=== PATIENT | male | born 1990 | race African-American/Black ===

== ENCOUNTER 2016-03-06 06:52 | Emergency (ER) | payer OTHER ==
--- NOTE | 2016-03-06 08:35 | REP ---
Right ankle series: Four views. History: Pain and swelling. Findings: There is moderate to marked periarticular swelling at the ankle anteriorly and laterally. There is a chip fracture of the medial malleolus nondisplaced. Ankle mortise is intact. Oblique radiographs suggest the possibility of a avulsion chip fracture from the lateral malleolus. Bones, joints and soft tissues are otherwise unremarkable. Impression: Marked soft tissue swelling. Comminuted medial malleolar chip fracture nondisplaced. Possible chip fracture lateral malleolus seen on oblique radiograph. Ankle mortise is intact. Signed by Heath Tidwell MD 03/06/2016 02:35 P
--- NOTE | 2016-03-06 09:18 | EDDOCDS ---
Physician Documentation [facility] Name: Saulo Meek Age: 25 yrs Sex: Male : 1990 Arrival Date: 03/06/2016 Time: 06:52 Bed TR8 Private MD: Disposition: 03/06/16 08:49 Discharged to Home/Self Care. Impression: Nondisplaced fracture of medial malleolus of right tibia - comminuted avulsion fracture, Sprain of unspecified ligament of right ankle - possible avulsion fracture of lateral malleolus. - Condition is Stable. - Discharge Instructions: Elastic Bandage and RICE, Cast or Splint Care, Crutch Use, Dpyc-fi-Fisf. - Prescriptions for Ibuprofen 800 mg Oral Tablet - take 1 tablet by ORAL route every 8 hours As needed take with food; 30 tablet. Ultram 50 mg Oral Tablet - take 1 tablet by ORAL route every 6 hours As needed MDD: 4 tabs; 20 tablet. - Medication Reconciliation, Local Pharmacy Hours form. - Follow up: Johnnie Tillman; When: Call to arrange an appointment; Reason: Recheck today's complaints. - Problem is new. - Symptoms are unchanged. Historical: - Allergies: no known allergies; - Home Meds: 1. none - PMHx: none; - PSHx: none; - Social history: Smoking status: Patient states was never smoker of tobacco. No barriers to communication noted, The patient speaks fluent Welsh. - Family history: Not pertinent. - : The pt / caregiver states he / she is not on anticoagulants. Home medication list is obtained from the patient. - Exposure Risk Screening:: None identified. Vital Signs: 03/06 07:40 BP 138 / 88; Pulse 85; Resp 16; Temp 97.6(T); Pulse Ox 99% on R/A; Weight 101.15 kg / dwg 223 lbs; Height 6 ft. 3 in. (190.50 cm); Pain 8/10; 08:41 BP 136 / 73; Pulse 75; Resp 18; Temp 98.9(TE); Pulse Ox 100% on R/A; Pain 8/10; dem1 07:40 Body Mass Index 27.87 (101.15 kg, 190.50 cm) dwg MDM: 07:47 Ankle, Complete Ordered. EDMS 09:03 Financial registration complete. lg Signatures: Dispatcher [employer] Raz Sparks RN RN Edward Gage RN RN jmk Ganter, LoriLee, Real Reg lg Santino Hobson PA-C PA-C ar2 MTDD
--- NOTE | 2016-03-06 09:18 | EDDOCDS ---
Nurse's Notes [facility] Name: Saulo Meek Age: 25 yrs Sex: Male : 1990 Arrival Date: 03/06/2016 Time: 06:52 Bed TR8 Private MD: Diagnosis: Nondisplaced fracture of medial malleolus of right tibia-comminuted avulsion fracture;Sprain of unspecified ligament of right ankle-possible avulsion fracture of lateral malleolus Presentation: 03/06 07:38 Presenting complaint: Patient states: Pain and swelling to right ankle, rolled it dwg jogging at 6am today. The patients lower extremity has obvious swelling present on examination. The patient has been moved to a treatment area. Adult Sepsis Screening: The patient does not have new or worsening altered mentation. Patient's respiratory rate is less than 22. Systolic blood pressure is greater than 100. Patient has a qSOFA score of 0- Negative Sepsis Screen. Suicide/Homicide risk assessment- the patient denies having any suicidal and/or homicidal ideations and does not present with any other emotional, behavioral or mental health complaints. 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 Transition of care: patient was not received from another setting of care. 07:38 Acuity: SIMÓN Level 4 dwg 07:38 Method Of Arrival: Wheelchair [facility] Triage Assessment: 07:40 General: Appears in no apparent distress. Pain: Pain currently is 8 out of 10 on a pain dwg scale. HIV screening NA for this visit Offered previously. Historical: - Allergies: no known allergies; - Home Meds: 1. none - PMHx: none; - PSHx: none; - Social history: Smoking status: Patient states was never smoker of tobacco. No barriers to communication noted, The patient speaks fluent Malagasy. - Family history: Not pertinent. - : The pt / caregiver states he / she is not on anticoagulants. Home medication list is obtained from the patient. - Exposure Risk Screening:: None identified. Screenin:50 Screening information is obtained from the patient. Fall risk: No risks identified. jmk Assistance ADL's: requires no assistance with activities of daily living. Abuse/DV Screen: The patient / caregiver reports he/she is: not in a situation that causes fear, pain or injury. Nutritional screening: No deficits noted. Advance Directives: Currently, there is no health care proxy. There is no active DNR order. There is no living will. There is no Power of Director Of Rehabilitation And Wellness. home support is adequate. Assessment: 07:48 General: Appears in no apparent distress, laughing and joking with visitor. right ankle jmk with visible swelling ( lateral malleolus greater than medial) pulse intact . 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 skin integrity intact. without other injury. ice, elevation initiated.. Musculoskeletal: Capillary refill < 3 seconds No deformity noted Swelling present in right ankle, right Achilles and anterior aspect of right ankle. 09:14 General: Appears splinting accomplished. tolerated well. familiar with [facility] AT [facility] gait.. [facility] Vital Signs: 07:40 BP 138 / 88; Pulse 85; Resp 16; Temp 97.6(T); Pulse Ox 99% on R/A; Weight 101.15 kg; g Height 6 ft. 3 in. (190.50 cm); Pain 8/10; 08:41 BP 136 / 73; Pulse 75; Resp 18; Temp 98.9(TE); Pulse Ox 100% on R/A; Pain 8/10; dem1 07:40 Body Mass Index 27.87 (101.15 kg, 190.50 cm) [facility] Vitals: 07:40 Log In Time: March 06, 2016 at 06:53. [facility] ED Course: 06:54 Patient visited by Mary Walker Reg. hs2 06:54 Patient moved to Waiting hs2 07:33 Patient moved to Triage 1 dw 07:39 Triage Initiated dwg 07:41 Patient moved to I4 / M4 dwg 07:49 [facility] ar2 07:49 Jarrell Juarez MD is Attending Physician. ar2 07:49 Patient visited by Santino Hobson PA-C. ar2 07:50 The patient / caregiver is instructed regarding the plan of care and ED course. jmk 07:51 Patient visited by Edward Garcia RN. jmk 08:09 Patient moved to Radiology dem1 08:16 Patient moved to I4 / M4 dem1 08:41 Patient visited by Socorro Will. dem1 08:43 Johnnie Tillman is Referral Physician. ar2 09:00 Patient name changed from Saulo\S\\S\Meek\S\ to Saulo\S\Elder\S\Meek. EDMS 09:00 Ankle, Complete Returned. EDMS 09:08 Patient moved to 8 dem1 09:14 No IV's were initiated during this patient's visit. No procedures done that require jmk assistance. Order Results: Radiology Order: Ankle, Complete Test: Ankle, Complete REASON FOR EXAMINATION: Pain and swelling; Right ankle series: Four views.; ; History: Pain and swelling.; ; Findings: There is moderate to marked periarticular swelling at the ankle; anteriorly and laterally. There is a chip fracture of the medial malleolus; nondisplaced. Ankle mortise is intact. Oblique radiographs suggest the; possibility of a avulsion chip fracture from the lateral malleolus. Bones,; joints and soft tissues are otherwise unremarkable.; ; Impression:; ; Marked soft tissue swelling. Comminuted medial malleolar chip fracture; nondisplaced. Possible chip fracture lateral malleolus seen on oblique; radiograph. Ankle mortise is intact.; ; ; ; ; Unreviewed; Outcome: 08:49 Discharge ordered by Provider. ar2 09:14 Discharge Assessment: Patient awake, alert and oriented x 3. No cognitive and/or jmk functional deficits noted. Patient verbalized understanding of disposition instructions. patient administered narcotics - no. The following High Risk Discharge criteria are identified: None. Condition: good. Discharge instructions given to patient, Instructed on discharge instructions, Demonstrated understanding of instructions, medications, Pt was receptive of discharge instructions/ teaching. Prescriptions given X 1. No special radiology studies were completed. Property removed. 09:17 Patient left the ED. serak Signatures: Dispatcher [employer] Raz Sparks, RN Edward Amaro RN RN jmk Robertshaw, Aaron, PA-C PA-C ar2 Socorro Will dem1 Mary Walker, Reg Reg hs2 MTDD
--- NOTE | 2016-03-08 10:18 | EDDOCDS ---
Nurse's Notes [facility] Name: Saulo Meek Age: 25 yrs Sex: Male : 1990 Arrival Date: 03/06/2016 Time: 06:52 Bed TR8 Private MD: Diagnosis: Nondisplaced fracture of medial malleolus of right tibia-comminuted avulsion fracture;Sprain of unspecified ligament of right ankle-possible avulsion fracture of lateral malleolus Presentation: 03/06 07:38 Presenting complaint: Patient states: Pain and swelling to right ankle, rolled it dwg jogging at 6am today. The patients lower extremity has obvious swelling present on examination. The patient has been moved to a treatment area. Adult Sepsis Screening: The patient does not have new or worsening altered mentation. Patient's respiratory rate is less than 22. Systolic blood pressure is greater than 100. Patient has a qSOFA score of 0- Negative Sepsis Screen. Suicide/Homicide risk assessment- the patient denies having any suicidal and/or homicidal ideations and does not present with any other emotional, behavioral or mental health complaints. 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 Transition of care: patient was not received from another setting of care. 07:38 Acuity: SIMÓN Level 4 dwg 07:38 Method Of Arrival: Wheelchair [facility] Triage Assessment: 07:40 General: Appears in no apparent distress. Pain: Pain currently is 8 out of 10 on a pain dwg scale. HIV screening NA for this visit Offered previously. Historical: - Allergies: no known allergies; - Home Meds: 1. none - PMHx: none; - PSHx: none; - Social history: Smoking status: Patient states was never smoker of tobacco. No barriers to communication noted, The patient speaks fluent Emirati. - Family history: Not pertinent. - : The pt / caregiver states he / she is not on anticoagulants. Home medication list is obtained from the patient. - Exposure Risk Screening:: None identified. Screenin:50 Screening information is obtained from the patient. Fall risk: No risks identified. jmk Assistance ADL's: requires no assistance with activities of daily living. Abuse/DV Screen: The patient / caregiver reports he/she is: not in a situation that causes fear, pain or injury. Nutritional screening: No deficits noted. Advance Directives: Currently, there is no health care proxy. There is no active DNR order. There is no living will. There is no Power of Area Operations Manager. home support is adequate. Assessment: 07:48 General: Appears in no apparent distress, laughing and joking with visitor. 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 skin integrity intact. without other injury. ice, elevation initiated.. Musculoskeletal: Capillary refill < 3 seconds No deformity noted Swelling present in right ankle, right Achilles and anterior aspect of right ankle. 09:14 General: Appears splinting accomplished. tolerated well. familiar with [facility] gait.. [facility] Vital Signs: 07:40 BP 138 / 88; Pulse 85; Resp 16; Temp 97.6(T); Pulse Ox 99% on R/A; Weight 101.15 kg; g Height 6 ft. 3 in. (190.50 cm); Pain 8/10; 08:41 BP 136 / 73; Pulse 75; Resp 18; Temp 98.9(TE); Pulse Ox 100% on R/A; Pain 8/10; dem1 07:40 Body Mass Index 27.87 (101.15 kg, 190.50 cm) [facility] Vitals: 07:40 Log In Time: March 06, 2016 at 06:53. [facility] ED Course: 06:54 Patient visited by Mary Walker Reg. hs2 06:54 Patient moved to Waiting hs2 07:33 Patient moved to Triage 1 dw 07:39 Triage Initiated dwg 07:41 Patient moved to I4 / M4 dwg 07:49 Santino Hobson [facility]C [facility] ar2 07:49 Jarrell Juarez MD is Attending Physician. ar2 07:49 Patient visited by Santino Hobson PA-C. ar2 07:50 The patient / caregiver is instructed regarding the plan of care and ED course. jmk 07:51 Patient visited by Edward Garcia RN. jmk 08:09 Patient moved to Radiology dem1 08:16 Patient moved to I4 / M4 dem1 08:41 Patient visited by Socorro Will. dem1 08:43 Johnnie Tillman is Referral Physician. ar2 09:00 Patient name changed from Saulo\S\\S\Meek\S\ to Saulo\S\Elder\S\Meek. EDMS 09:00 Ankle, Complete Returned. EDMS 09:08 Patient moved to 8 [facility] 09:14 No IV's were initiated during this patient's visit. No procedures done that require jmk assistance. 09:33 Patient name changed from Saulo\S\Elder\S\Meek\S\ to Saulo\S\Ashutosh\S\Meek. EDMS 09:35 [facility] [place] Agreement was scanned into [employer] and attached to record. lg 14:18 T-Sheet-- Draft Copy was scanned into [employer] and attached to record. gb 14:18 Radiology Report was scanned into [employer] and attached to record. gb Order Results: Radiology Order: Ankle, Complete Test: Ankle, Complete REASON FOR EXAMINATION: Pain and swelling; Right ankle series: Four views.; ; History: Pain and swelling.; ; Findings: There is moderate to marked periarticular swelling at the ankle; anteriorly and laterally. There is a chip fracture of the medial malleolus; nondisplaced. Ankle mortise is intact. Oblique radiographs suggest the; possibility of a avulsion chip fracture from the lateral malleolus. Bones,; joints and soft tissues are otherwise unremarkable.; ; Impression:; ; Marked soft tissue swelling. Comminuted medial malleolar chip fracture; nondisplaced. Possible chip fracture lateral malleolus seen on oblique; radiograph. Ankle mortise is intact.; ; ; Signed by; Heath Tidwell MD 03/06/2016 02:35 P; Outcome: 08:49 Discharge ordered by Provider. ar2 09:14 Discharge Assessment: Patient awake, alert and oriented x 3. No cognitive and/or jmk functional deficits noted. Patient verbalized understanding of disposition instructions. patient administered narcotics - no. The following High Risk Discharge criteria are identified: None. Condition: good. Discharge instructions given to patient, Instructed on discharge instructions, Demonstrated understanding of instructions, medications, Pt was receptive of discharge instructions/ teaching. Prescriptions given X 1. No special radiology studies were completed. Property removed. 09:17 Patient left the ED. adilene Signatures: Dispatcher [facility] Raz Sparks RN RN dwg Knapp, Jean, RN RN Christina Rust, Reg Reg gb Savanna Aparicio, Reg Reg lg Santino Hobson, TERRENCE PAKurt ar2 Socorro Will1 Mary Walker, Reg Reg hs2 Chart Complete MTDD
--- NOTE | 2016-03-08 10:18 | EDDOCDS ---
Physician Documentation [facility] Name: Saulo Meek Age: 25 yrs Sex: Male : 1990 Arrival Date: 03/06/2016 Time: 06:52 Bed TR8 Private MD: Disposition: 03/06/16 08:49 Discharged to Home/Self Care. Impression: Nondisplaced fracture of medial malleolus of right tibia - comminuted avulsion fracture, Sprain of unspecified ligament of right ankle - possible avulsion fracture of lateral malleolus. - Condition is Stable. - Discharge Instructions: Elastic Bandage and RICE, Cast or Splint Care, Crutch Use, [id number]-[id number]. - Prescriptions for Ibuprofen 800 mg Oral Tablet - take 1 tablet by ORAL route every 8 hours As needed take with food; 30 tablet. Ultram 50 mg Oral Tablet - take 1 tablet by ORAL route every 6 hours As needed MDD: 4 tabs; 20 tablet. - Medication Reconciliation, Local Pharmacy Hours form. - Follow up: Johnnie Tillman; When: Call to arrange an appointment; Reason: Recheck today's complaints. - Problem is new. - Symptoms are unchanged. Historical: - Allergies: no known allergies; - Home Meds: 1. none - PMHx: none; - PSHx: none; - Social history: Smoking status: Patient states was never smoker of tobacco. No barriers to communication noted, The patient speaks fluent Costa Rican. - Family history: Not pertinent. - : The pt / caregiver states he / she is not on anticoagulants. Home medication list is obtained from the patient. - Exposure Risk Screening:: None identified. Vital Signs: 03/06 07:40 BP 138 / 88; Pulse 85; Resp 16; Temp 97.6(T); Pulse Ox 99% on R/A; Weight 101.15 kg / dwg 223 lbs; Height 6 ft. 3 in. (190.50 cm); Pain 8/10; 08:41 BP 136 / 73; Pulse 75; Resp 18; Temp 98.9(TE); Pulse Ox 100% on R/A; Pain 8/10; dem1 07:40 Body Mass Index 27.87 (101.15 kg, 190.50 cm) dwg MDM: 07:47 Ankle, Complete Ordered. EDMS 09:03 Financial registration complete. 09:35 [facility] Payment Agreement was scanned into [employer] and attached to record. lg 14:18 T-Sheet-- Draft Copy was scanned into [employer] and attached to record. gb 14:18 Radiology Report was scanned into [employer] and attached to record. gb Signatures: Dispatcher [employer] Raz Sparks RN RN dwg Knapp, Jean, RN RN jmk Barnhardt, Gloria, Reg Reg gb Savanna Aparicio, Reg Reg lg Santino Hobson, PA-Regla PAKurt ar2 The chart was reviewed and I authenticate all verbal orders and agree with the evaluation and treatment provided.Attachments: 09:35 [facility] Payment Agreement lg 14:18 T-Sheet-- Draft Copy gb Chart Complete MTDD
--- NOTE | 2016-03-08 10:18 | EDDOCDS ---
Physician Documentation [facility] Name: Saulo Meek Age: 25 yrs Sex: Male : 1990 Arrival Date: 03/06/2016 Time: 06:52 Bed TR8 Private MD: Disposition: 03/06/16 08:49 Discharged to Home/Self Care. Impression: Nondisplaced fracture of medial malleolus of right tibia - comminuted avulsion fracture, Sprain of unspecified ligament of right ankle - possible avulsion fracture of lateral malleolus. - Condition is Stable. - Discharge Instructions: Elastic Bandage and RICE, Cast or Splint Care, Crutch Use, [id number]. - Prescriptions for Ibuprofen 800 mg Oral Tablet - take 1 tablet by ORAL route every 8 hours As needed take with food; 30 tablet. Ultram 50 mg Oral Tablet - take 1 tablet by ORAL route every 6 hours As needed MDD: 4 tabs; 20 tablet. - Medication Reconciliation, Local Pharmacy Hours form. - Follow up: Johnnie Tillman; When: Call to arrange an appointment; Reason: Recheck today's complaints. - Problem is new. - Symptoms are unchanged. Historical: - Allergies: no known allergies; - Home Meds: 1. none - PMHx: none; - PSHx: none; - Social history: Smoking status: Patient states was never smoker of tobacco. No barriers to communication noted, The patient speaks fluent Indonesian. - Family history: Not pertinent. - : The pt / caregiver states he / she is not on anticoagulants. Home medication list is obtained from the patient. - Exposure Risk Screening:: None identified. Vital Signs: 03/06 07:40 BP 138 / 88; Pulse 85; Resp 16; Temp 97.6(T); Pulse Ox 99% on R/A; Weight 101.15 kg / dwg 223 lbs; Height 6 ft. 3 in. (190.50 cm); Pain 8/10; 08:41 BP 136 / 73; Pulse 75; Resp 18; Temp 98.9(TE); Pulse Ox 100% on R/A; Pain 8/10; dem1 07:40 Body Mass Index 27.87 (101.15 kg, 190.50 cm) dwg MDM: 07:47 Ankle, Complete Ordered. EDMS 09:03 Financial registration complete. 09:35 [facility] Payment Agreement was scanned into [employer] and attached to record. lg 14:18 T-Sheet-- Draft Copy was scanned into [employer] and attached to record. gb 14:18 Radiology Report was scanned into [employer] and attached to record. gb Signatures: Dispatcher [employer] Raz Sparks RN RN dwg Knapp, Jean, RN RN jmk Barnhardt, Gloria, Reg Reg gb Savanna Aparicio, Reg Reg lg Santino Hobson, PA-Regla PAKurt ar2 The chart was reviewed and I authenticate all verbal orders and agree with the evaluation and treatment provided.Attachments: 09:35 [facility] Payment Agreement lg 14:18 T-Sheet-- Draft Copy gb Chart Complete MTDD
== END 2016-03-06 09:17 | disposition home or self-care (01) ==
LOC: M ED 06:52
DX: S82.54XA Nondisplaced fracture of medial malleolus of right tibia, initial encounter for closed fracture (principal); S93.401A Sprain of unspecified ligament of right ankle, initial encounter; X58.XXXA Exposure to other specified factors, initial encounter; Y92.89 Other specified places as the place of occurrence of the external cause; Y93.02 Activity, running; Y99.1 Military activity